=== PATIENT | male | born 1995 | race African-American/Black ===

== ENCOUNTER 2019-08-06 16:29 | Emergency (ER) | payer OTHER ==
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
[2019-08-06 16:47] VITALS: BP 119/63; PULSE 55; TEMP 98.6; BMI 25.7
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
[2019-08-06] MEDS ORDERED: NAPROXEN 500 MG TABLET (FP) ONE (17:56)
== END 2019-08-06 17:29 | disposition home or self-care (01) ==
LOC: JERFT 16:29
DX: S13.4XXA Sprain of ligaments of cervical spine, initial encounter (principal); V43.52XA Car driver injured in collision with other type car in traffic accident, initial encounter; Y93.89 Activity, other specified; Y92.410 Unspecified street and highway as the place of occurrence of the external cause
CPT/HCPCS: 99281-25